=== PATIENT | female | born 1950 | race Caucasian/White ===

== ENCOUNTER → 2019-10-28 15:13 | Outpatient (CLI) | payer MEDICARE, OTHER, SELFPAY ==
--- NOTE | 2019-10-28 | DI.MG.S_ITS ---
BILATERAL DIGITAL SCREENING MAMMOGRAM 3D/2D WITH CAD: 10/28/2019 CLINICAL: Routine screening. Family history of breast cancer. Comparison is made to exams dated: 04/04/2016 mammogram, 03/27/2015 mammogram, 03/31/2014 mammogram, and 03/29/2013 mammogram - [facility]. There are scattered fibroglandular elements in both breasts. Current study was also evaluated with a Computer Aided Detection (CAD) system. No significant masses, calcifications, or other findings are seen in either breast. There has been no significant interval change. IMPRESSION: NEGATIVE There is no mammographic evidence of malignancy. A 1 year screening mammogram is recommended. This exam was interpreted at Station ID: [id number]. NOTE: For mammograms, a report in lay terms will be sent to the patient. Approximately 15% of breast malignancies will not be visualized mammographically. In the management of a palpable breast mass, a negative mammogram must not discourage biopsy of a clinically suspicious lesion. Electronically Signed By: Jodee sloan/cami:10/28/2019 16:59:54 letter sent: Normal Exam ACR BI-RADS Category 1: Negative 3341F
== END ==
PROVIDERS: PCP Physician Assistant; Referring Provider Physician Assistant; Visit Provider Physician Assistant
DX: Z12.31 Encounter for screening mammogram for malignant neoplasm of breast (principal); Z80.3 Family history of malignant neoplasm of breast
CPT/HCPCS: 77063; 77067

== ENCOUNTER → 2019-11-25 13:46 | Outpatient (CLI) | payer MEDICARE, OTHER, SELFPAY ==
[2019-11-25 14:22] LABS: Add Manual Diff / Slide Review NO; Basophils Absolute Auto 100 /uL (0-100); Basophils Percent Auto 1.9 % (0-2); Eosinophils Absolute Auto 0 /uL (0-450); Eosinophils Percent Auto 1.1 % (2-4); Hematocrit 38.2 % (36-46); Hemoglobin 12.8 g/dL (12.0-16.0); Lymphocytes Absolute Auto 900 /uL (1100-4500); Lymphocytes Percent Auto 30.4 % (25-40); Mean Corpuscular HGB Conc 33.5 % (30-36); Mean Corpuscular Hemoglobin 30.4 PG (26-34); Mean Corpuscular Volume 90.6 fL (80-100); Monocytes Absolute Auto 300 /uL (0-900); Monocytes Percent Auto 9.2 % (3-14); Neutrophils Absolute Auto 1700 /uL (1500-7000); Neutrophils Percent Auto 57.4 % (50-75); Platelet Count 260 X10^3/uL (150-400); Red Blood Cell Count 4.21 X10^6/uL (4.0-5.2); Red Cell Distribution Width 13.5 % (11.6-14.8); White Blood Cell Count 2.9 X10^3/uL (4.5-11.0)
[2019-11-25 14:37] LABS: Alanine Aminotransferase 14 IU/L (<35); Albumin 4.2 g/dL (3.5-5.0); Albumin Globulin Ratio 1.8 (1.0-2.8); Alkaline Phosphatase 58 U/L (38-126); Aspartate Aminotransferase 24 IU/L (14-36); BUN Creatinine Ratio 20.3 (6-22); Bilirubin Total 0.5 mg/dL (0.2-1.3); Blood Urea Nitrogen 16 mg/dL (7-17); Calcium 9.2 mg/dL (8.4-10.2); Carbon Dioxide 29 mmol/L (22-32); Chloride 100 mmol/L (98-107); Cholesterol 227 mg/dL (140-199); Estimated Glomerular Filt Rate > 60.0 mL/min (>60); Gamma Glutamyl Transpeptidase 19 U/L (12-43); Globulin 2.3 g/dL (1.7-4.1); Glucose 93 mg/dL (80-110); HDL Cholesterol 90 mg/dL (40-60); HEMOLYSIS < 15 (0-50); LDL Cholesterol Calculated 123 mg/dL (<100); Potassium 4.2 mmol/L (3.4-5.1); Sodium 134 mmol/L (137-145); Total Protein 6.5 g/dL (6.3-8.2); Triglycerides 68 mg/dL (35-150)
[2019-11-25 15:38] LABS: Vitamin D 25 Hydroxy (D3) 43.5 ng/mL (30.0-100.0)
[2019-11-28 17:36] LABS: Vitamin B1 133.5 nmol/L (66.5-200.0)
== END ==
PROVIDERS: PCP Physician Assistant; Referring Provider Physician Assistant; Visit Provider Physician Assistant
DX: F32.9 Major depressive disorder, single episode, unspecified (principal); E55.9 Vitamin D deficiency, unspecified; E78.2 Mixed hyperlipidemia; F10.20 Alcohol dependence, uncomplicated
CPT/HCPCS: 36415; 80053; 80061; 82306; 82977; 84425; 85025

== ENCOUNTER → 2020-08-03 11:47 | Outpatient (CLI) | payer MEDICARE, OTHER, SELFPAY ==
--- NOTE | 2020-08-03 | DI.RAD.S_ITS ---
PROCEDURE: XR CHEST 2V INDICATIONS: Chronic Fatigue TECHNIQUE: 2 views of the chest were acquired. COMPARISON: None. FINDINGS: Surgical changes and devices: None. Lungs and pleura: Lungs are clear. No pleural effusions or pneumothorax. Mediastinum: Mediastinal contours are normal. Heart size is normal. Bones and chest wall: No suspicious bony abnormalities. Soft tissues appear unremarkable. IMPRESSION: Normal for age, source of current chronic fatigue symptoms is not seen. Dictated by: Himanshu Toro M.D. on 08/03/2020 at 13:09 Approved by: Himanshu Toro M.D. on 08/03/2020 at 13:09
--- NOTE | 2020-08-03 | DI.RAD.S_ITS ---
PROCEDURE: XR LUMBAR SPINE 2-3V INDICATIONS: Back Pain TECHNIQUE: 3 views of the lumbar spine were acquired. COMPARISON: None. FINDINGS: Bones: 5 [id number] vertebrae are present. There is mildly abnormal bony alignment. No vertebral body compression fractures. No suspicious bony lesions. Note is made of a mild degree of degenerative disc disease from L 3 inferiorly, and facet osteoarthritis that is more prominent from L3 through S1 and most pronounced at L4-5 and L5-S1. There is mild grade 1 anterolisthesis of L4 on L5, associated with ligamentous laxity. Soft tissues: Overlying bowel gas pattern is normal. No suspicious soft tissue calcifications. IMPRESSION: No trauma found. Mild degenerative changes as discussed to include disc height reduction and facet osteoarthritis best seen at L4-5 and L5-S1. Anterolisthesis grade 1 is present at L4-L5 as a result. Dictated by: Himanshu Toro M.D. on 08/03/2020 at 13:43 Approved by: Himanshu Toro M.D. on 08/03/2020 at 13:44
--- NOTE | 2020-08-03 | DI.RAD.S_ITS ---
PROCEDURE: XR CERVICAL SPINE 2V OR 3V INDICATIONS: Back Pain TECHNIQUE: 3 view(s) of the cervical spine were acquired. COMPARISON: None. FINDINGS: Bones: No fractures or dislocations to the T1 level. The lateral masses of C1 appear intact on the odontoid view. No suspicious bony lesions. There is moderately severe C5-6 and C6-7 degenerative disc disease without subluxation. Soft tissues: No prevertebral soft tissue swelling. IMPRESSION: C5-6 through C6-7 moderately severe chronic appearing degenerative disc disease without prior trauma or subluxation. Facet osteoarthritis is relatively prominent over the middle 3rd of the cervical spine seen on the straight frontal projection. Foraminal stenosis may be associated. Dictated by: Himanshu Toro M.D. on 08/03/2020 at 13:08 Approved by: Himanshu Toro M.D. on 08/03/2020 at 13:09
--- NOTE | 2020-08-03 | DI.RAD.S_ITS ---
PROCEDURE: XR THORACIC SPINE 3V INDICATIONS: Back Pain TECHNIQUE: 3 views of the thoracic spine were acquired. COMPARISON: None. FINDINGS: Bones: No fractures or dislocations. No suspicious bony lesions. 12 pairs of ribs are noted, and appear intact where visualized. Mild degenerative disc disease is seen over the upper and middle thirds of the thoracic spine, without compression fracture. Soft tissues: No paravertebral stripe thickening. IMPRESSION: Mild degenerative disc disease over the upper and middle thirds of the thoracic spine. No trauma Dictated by: Himanshu Toro M.D. on 08/03/2020 at 13:44 Approved by: Himanshu Toro M.D. on 08/03/2020 at 13:45
[2020-08-03 12:49] LABS: Add Manual Diff / Slide Review NO; Basophils Absolute Auto 100 /uL (0-100); Basophils Percent Auto 1.4 % (0-2); Eosinophils Absolute Auto 100 /uL (0-450); Eosinophils Percent Auto 2.3 % (2-4); Hematocrit 39.5 % (36-46); Lymphocytes Absolute Auto 900 /uL (1100-4500); Lymphocytes Percent Auto 26.7 % (25-40); Mean Corpuscular Hemoglobin 30.3 PG (26-34); Monocytes Absolute Auto 300 /uL (0-900); Monocytes Percent Auto 9.7 % (3-14); Neutrophils Absolute Auto 2100 /uL (1500-7000); Neutrophils Percent Auto 59.9 % (50-75); Platelet Count 250 X10^3/uL (150-400); Red Blood Cell Count 4.29 X10^6/uL (4.0-5.2); Red Cell Distribution Width 13.9 % (11.6-14.8); White Blood Cell Count 3.5 X10^3/uL (4.5-11.0)
[2020-08-03 13:19] LABS: HEMOLYSIS < 15 (0-50); Iron 123 ug/dL (37-170)
[2020-08-03 13:23] LABS: Alanine Aminotransferase 15 IU/L (<35); Albumin 4.2 g/dL (3.5-5.0); Albumin Globulin Ratio 1.6 (1.0-2.8); Alkaline Phosphatase 58 U/L (38-126); Aspartate Aminotransferase 26 IU/L (14-36); BUN Creatinine Ratio 25.6 (6-22); Bilirubin Total 0.3 mg/dL (0.2-1.3); Blood Urea Nitrogen 20 mg/dL (7-17); Calcium 9.9 mg/dL (8.4-10.2); Carbon Dioxide 29 mmol/L (22-32); Chloride 102 mmol/L (98-107); Cholesterol 242 mg/dL (140-199); Estimated Glomerular Filt Rate > 60.0 mL/min (>60); Globulin 2.6 g/dL (1.7-4.1); Glucose 94 mg/dL (80-110); HDL Cholesterol 90 mg/dL (40-60); HEMOLYSIS < 15 (0-50); LDL Cholesterol Calculated 134 mg/dL (<100); Potassium 4.6 mmol/L (3.4-5.1); Sodium 136 mmol/L (137-145); Total Protein 6.8 g/dL (6.3-8.2); Triglycerides 91 mg/dL (35-150)
[2020-08-03 13:30] LABS: Percent Iron Saturation 36 % (15-50); Total Iron Binding Capacity 346 ug/dL (265-497); Transferrin 301 mg/dL (206-381)
[2020-08-03 13:51] LABS: TSH w/ Reflex to FT4 1.08 uIU/mL (0.47-4.68)
[2020-08-03 14:01] LABS: Ferritin 20 ng/mL (11-264)
[2020-08-03 14:31] LABS: Vitamin B12 771 pg/mL (239-931)
[2020-08-03 15:26] LABS: Vitamin D 25 Hydroxy (D3) 53.1 ng/mL (30.0-100.0)
== END ==
PROVIDERS: PCP Physician Assistant; Referring Provider Physician Assistant; Visit Provider Physician Assistant
DX: M54.32 Sciatica, left side (principal); M54.9 Dorsalgia, unspecified; M47.816 Spondylosis without myelopathy or radiculopathy, lumbar region; M47.817 Spondylosis without myelopathy or radiculopathy, lumbosacral region; M43.16 Spondylolisthesis, lumbar region; M50.322 Other cervical disc degeneration at C5-C6 level; M47.812 Spondylosis without myelopathy or radiculopathy, cervical region; M54.6 Pain in thoracic spine; M47.814 Spondylosis without myelopathy or radiculopathy, thoracic region; R53.82 Chronic fatigue, unspecified; D72.819 Decreased white blood cell count, unspecified; E55.9 Vitamin D deficiency, unspecified; E78.2 Mixed hyperlipidemia
CPT/HCPCS: 36415; 71046; 72040; 72072; 72100; 80053; 80061; 82306; 82607; 82728; 82746; 83540; 83550; 84443; 85025

== ENCOUNTER → 2020-08-06 13:12 | Outpatient (CLI) | payer MEDICARE, OTHER, SELFPAY | PROVIDERS: PCP Physician Assistant; Referring Provider Physician Assistant; Visit Provider Physician Assistant | DX: M85.852 Other specified disorders of bone density and structure, left thigh (principal); Z78.0 Asymptomatic menopausal state; Z82.62 Family history of osteoporosis | CPT/HCPCS: 77080 ==

== ENCOUNTER → 2022-05-27 09:08 | Outpatient (CLI) | payer MEDICARE, OTHER, SELFPAY ==
--- NOTE | 2022-05-29 13:06 | DI.NM.S_ITS ---
DATE OF SERVICE: 05/27/2022 PROCEDURE PERFORMED: Exercise treadmill stress and rest myocardial perfusion imaging with gating to assess ejection fraction and regional wall motion. ORDERING PROVIDER: Gladis Mcdonald PA-C. INDICATIONS: The patient is a 72-year-old female with coronary calcifications and atypical chest discomfort. CARDIAC STRESS: The patient was able to exercise for 6 minutes, 22 seconds on a standard Earle protocol, suggesting good exercise capacity with an MARIE of -20%. She had a slightly accelerated heart rate response to exercise, achieving a maximum heart rate of 160 BPM (110% of her predicted maximum) but a normal blood pressure response. She had no chest discomfort or other anginal symptoms. Her resting ECG is normal and there are no significant ST-segment shifts or arrhythmias with stress. At 5 minutes, 13 seconds of exercise at a heart rate of 153 BPM, 25.5 millicuries of technetium-99m Myoview was injected. She was imaged 10 minutes later using a gated SPECT acquisition protocol. Two days prior while at rest, she had been injected with 26.5 millicuries of technetium-99m Myoview and was imaged 15 minutes later, again using a gated SPECT acquisition protocol. FINDINGS: 1. Raw data: There is good myocardial tracer uptake. There is some slight motion noted on both the stress and rest images. The lung/heart ratio is at the upper limits of normal at 0.40 with a normal TID ratio of 1.04. 2. Quantitated gated SPECT: Post-stress ejection fraction is estimated at 89% without any focal wall motion abnormality. Resting ejection fraction is 85% with a normal resting end-diastolic volume of 54 mL. 3. Myocardial perfusion imaging: Post-stress supine images shows a normal myocardial perfusion pattern without any perfusion defects, supported by normal perfusion imaging in the prone position. The resting images show an identical perfusion pattern without any areas of improvement. IMPRESSION: 1. Normal myocardial perfusion study. 2. No evidence of myocardial ischemia or previous myocardial infarction. 3. Normal left ventricular size and systolic function. 4. Good exercise capacity without angina or ECG evidence of ischemia. She had a slightly accelerated heart rate response to exercise. DamionAnusha em - Darian/ronaldo doc#: [id number]/job#: [id number] dd: 05/29/2022 12:30:00 dt: 05/29/2022 12:46:00 DICTATING MD/COPIES TO: Sanjiv William MD COPIES MNE: DONALD;
== END ==
PROVIDERS: PCP Physician Assistant; Referring Provider Physician Assistant; Visit Provider Physician Assistant
DX: R07.89 Other chest pain (principal); I25.10 Atherosclerotic heart disease of native coronary artery without angina pectoris
CPT/HCPCS: 78452; 93017; A9502